=== PATIENT | female | born 1965 | race Caucasian/White ===

== ENCOUNTER 2020-01-26 10:30 | Emergency (ER) | payer MEDICARE, SELFPAY ==
--- NOTE | 2020-01-26 10:34 | ED.GENADULT ---
HPI - General Adult General Chief complaint: Ear Stated complaint: right ear pain Time Seen by Provider: 01/26/20 10:46 Source: patient Mode of arrival: ambulatory Limitations: no limitations History of Present Illness HPI narrative: 54-year-old female patient presents to the [facility] with complaints of right ear pain for the past 2 days. Patient describes the pain as throbbing. Denies any fevers, runny nose or sore throat. Denies any chest pain or shortness of breath. Patient states that she has been swimming in a sun in a pool recently. Related Data Home Medications Medication Instructions Recorded Confirmed atorvastatin 20 mg PO DAILY 06/24/19 01/26/20 cyclobenzaprine 10 mg PO TID 06/24/19 01/26/20 fluoxetine 20 mg PO DAILY 06/24/19 01/26/20 gabapentin 600 mg PO TID 06/24/19 01/26/20 meloxicam 15 mg PO DAILY 06/24/19 01/26/20 triamterene-hydrochlorothiazid 1 cap PO DAILY 06/24/19 01/26/20 verapamil 180 mg PO DAILY 06/24/19 01/26/20 omeprazole 20 mg PO DAILY 01/26/20 01/26/20 Allergies Allergy/AdvReac Type Severity Reaction Status Date / Time Sulfa (Sulfonamide Allergy Unknown blisters Verified 06/24/19 20:54 Antibiotics) in mouth Review of Systems Review of Systems: Narrative: CONSTITUTIONAL: Denies fever, chills, or sweats. EYES: Denies visual changes, redness, or discharge. ENT: Denies rhinorrhea, congestion, sore throat, positive right otalgia. CARDIOVASCULAR: Denies chest pain, palpitations, or edema. RESPIRATORY: Denies cough or dyspnea. GASTROINTESTINAL: Denies abdominal pain, nausea, vomiting, or diarrhea. GENITOURINARY: Denies dysuria or hematuria. SKIN: Denies rash or itching. MUSCULOSKELETAL: Denies back pain, joint pain, or myalgia. NEUROLOGIC: Denies headache, numbness, or weakness. PSYCHIATRIC: Denies anxiety or depression. [facility] Past Medical History Medical History Chronic back pain HTN (hypertension) Hyperlipidemia Surgical History Surgical History H/O bilateral hip replacements H/O: History of partial hysterectomy Social History Social History Smoking status: Never smoker Gender identity (if verbalized by the patient): Female Comments At the time of my signature I agree with nursing past medical history, surgical, social, and family history. There is no relevant family history pertinent to the presenting complaint. Exam Narrative: Exam Narrative: GENERAL: Well-appearing, well-nourished, and in no acute distress. HEAD: Normocephalic, atraumatic. EYES: PERRLA and EOMI. ENT: Nares clear, no rhinorrhea or epistaxis. Mucous membranes moist. Posterior pharynx with no erythema, tonsil enlargement, exudates or lesions present. The right canal does have swelling and some yellow pus noted. Unable to visualize the TM due to swelling. NECK: Supple. No lymphadenopathy CHEST: Clear to auscultation. No respiratory distress. HEART: Regular rate and rhythm. No murmur heard. Normal peripheral pulses. ABDOMEN: Soft, nontender, nondistended, normal active bowel sounds. EXTREMITIES: Normal range of motion. No edema. SKIN: Warm, dry, no rash. NEURO: No focal deficits. Alert and oriented x3. Course Vital Signs Vital signs: Vital Signs Temperature 37.1 C 01/26/20 10:37 Pulse Rate 91 01/26/20 10:37 Respiratory Rate 01/26/20 10:37 Blood Pressure 146/79 H 01/26/20 10:37 Pulse Oximetry 98 01/26/20 10:37 Temperature 37.1 C 01/26/20 10:37 Pulse Rate 91 01/26/20 10:37 Respiratory Rate 01/26/20 10:37 Blood Pressure 146/79 H 01/26/20 10:37 Pulse Oximetry 98 01/26/20 10:37 Vital signs reviewed. Medical Decision Making Differential Diagnosis Differential Diagnosis: Differential diagnosis: Otitis media, otitis externa, perforated TM, infection of the outer ear, foreign body or ce
[2020-01-26 10:37] VITALS: BP 146/79; PULSE 91; RESP 20; TEMP 37.1; O2SAT 98
== END 2020-01-26 10:55 | disposition home or self-care (01) ==
PROVIDERS: Emergency Provider Nurse Practitioner Family; PCP Internal Medicine
DX: H60.331 Swimmer's ear, right ear (principal); I10 Essential (primary) hypertension; E78.5 Hyperlipidemia, unspecified; Z90.711 Acquired absence of uterus with remaining cervical stump; Z96.643 Presence of artificial hip joint, bilateral
CPT/HCPCS: 99213; G0463

== ENCOUNTER 2020-03-11 10:36 | Emergency (ER) | payer MEDICARE, SELFPAY ==
[2020-03-11 10:44] VITALS: BP 153/90; PULSE 84; RESP 20; TEMP 36.9; O2SAT 100
--- NOTE | 2020-03-11 11:02 | ED.EYEPROB ---
HPI - Eye Problem General Chief complaint: Eye Problems Stated complaint: pink eye Time Seen by Provider: 03/11/20 10:50 Source: patient Mode of arrival: ambulatory Limitations: no limitations History of Present Illness HPI Narrative: Meme Felix is a 54 yo female with a medical history of hypertension, depression, Anxiety, and comes to express care with complaints of first right and then left eye redness and discharge particularly at night. Initially thought it was allergy related but this morning had green discharge on eyelashes and had inner [place] of eye Related Data Home Medications Medication Instructions Recorded Confirmed atorvastatin 20 mg PO DAILY 06/24/19 03/11/20 cyclobenzaprine 10 mg PO TID 06/24/19 03/11/20 fluoxetine 20 mg PO DAILY 06/24/19 03/11/20 gabapentin 600 mg PO TID 06/24/19 03/11/20 triamterene-hydrochlorothiazid 1 cap PO DAILY 06/24/19 03/11/20 verapamil 180 mg PO DAILY 06/24/19 03/11/20 Allergies Allergy/AdvReac Type Severity Reaction Status Date / Time Sulfa (Sulfonamide Allergy Unknown blisters Verified 03/11/20 10:56 Antibiotics) in mouth Review of Systems Review of Systems: Narrative: CONSTITUTIONAL: Denies fever, chills, sweats. EYES: Denies visual changes, has redness, has discharge. ENT: Denies rhinorrhea, congestion, sore throat, otalgia. CARDIOVASCULAR: Denies chest pain, palpitations, edema. RESPIRATORY: Denies dyspnea, wheezing, cough GASTROINTESTINAL: Denies abdominal pain, nausea, vomiting, diarrhea. GENITOURINARY: Denies dysuria, hematuria, abnormal discharge SKIN: Denies rash or itching. NEUROLOGIC: Denies numbness, or focal weakness. PSYCHIATRIC: Denies anxiety or depression. [facility] Past Medical History Medical History Chronic back pain HTN (hypertension) Hyperlipidemia Surgical History Surgical History H/O bilateral hip replacements H/O: History of partial hysterectomy Family History Family History Other Heart disease Hypertension Social History Social History (Updated 03/11/20 @ 11:07 by KARENA Hugo Smoking status: Never smoker Alcohol intake: current Gender identity (if verbalized by the patient): Female Comments At time of signature, I agree with nursing past medical, surgical, social and family history. There is no relevant family history pertinent to the presenting complaint. Has diagnosis of hypertension Exam Narrative: Exam Narrative: GENERAL: This is a well-nourished, well-developed patient, in mild distress. HEAD: normocephalic, atraumatic. EYES: PERRL. Sclera injected right greater than left; vision is grossly intact. EARS: External ears normal, Hearing grossly intact. NOSE: External nose normal without nasal discharge, nares without redness, no rhinorrhea. THROAT: Mucous membranes moist, NECK: Neck supple, CARDIOVASCULAR: Regular rate and rhythm without murmurs, gallops, or rubs. RESPIRATORY: Clear to auscultation. Breath sounds equal bilaterally. No wheezes, rales, or rhonchi. GASTROINTESTINAL: Abdomen soft, SKIN: warm, intact with no suspicious lesions or rash, good texture and turgor. NEURO: awake, alert, and oriented to person, place and time. There were no obvious focal neurologic abnormalities. Steady gait EXTREMITIES: Normal range of motion. BACK: Nontender without deformity Course Course Emergency Course: Started on polymyxin eyedrops-given directions to use every 4 hours and use warm compresses to eyes also; avoid bright light; start on allergy medication Claritin Vital Signs Vital signs: Vital Signs Temperature 98.5 F 03/11/20 10:44 Pulse Rate 84 03/11/20 10:44 Respiratory Rate 20 03/11/20 10:44 Blood Pressure 153/90 H 03/11/20 10:44 Pulse Oximetry 100 03/11/20 10:44 Temperature 98.5 F 03/11
== END 2020-03-11 11:16 | disposition home or self-care (01) ==
PROVIDERS: Emergency Provider Nurse Practitioner; PCP Internal Medicine
DX: H10.9 Unspecified conjunctivitis (principal); Z96.643 Presence of artificial hip joint, bilateral; Z90.711 Acquired absence of uterus with remaining cervical stump; I10 Essential (primary) hypertension; E78.5 Hyperlipidemia, unspecified; F41.9 Anxiety disorder, unspecified; F32.9 Major depressive disorder, single episode, unspecified
CPT/HCPCS: 99213; G0463